=== PATIENT | male | born 1995 | race African-American/Black ===

== ENCOUNTER 2025-03-05 16:25 | Emergency (ER) | payer OTHER ==
[2025-03-05 16:33] VITALS: BP 107/62; PULSE 101; RESP 18; TEMP 98.1; BMI 29.6
[2025-03-05] MEDS ORDERED: IBUPROFEN 600 MG TABLET (FP) PO ONE (17:18)
[2025-03-05] MEDS ORDERED: METHOCARBAMOL 500 MG TABLET ONE (17:18)
[2025-03-05] MEDS: METHOCARBAMOL 500 MG TABLET PO ONE (17:23)
[2025-03-05] MEDS: IBUPROFEN 600 MG TABLET (FP) PO ONE (17:23)
== END 2025-03-05 17:43 | disposition home or self-care (01) ==
LOC: JER 16:25
DX: S29.012A Strain of muscle and tendon of back wall of thorax, initial encounter (principal); X50.1XXA Overexertion from prolonged static or awkward postures, initial encounter; Y99.0 Civilian activity done for income or pay
CPT/HCPCS: 99283-25